=== PATIENT | female | born 1950 | race Caucasian/White ===

== ENCOUNTER → 2017-01-08 | Outpatient (CLI) | payer OTHER ==
[~2017-01-08] MED LIST: LATA0.009 OPB; LEVO50TA6 PO; MULT-506 PO; POLYSOL OPB; VITAMIN C PO
--- NOTE | 2017-01-09 07:45 | MAMMOGRAPHY REPORT ---
BILATERAL DIGITAL SCREENING MAMMOGRAM WITH CAD: 01/08/2017 CLINICAL HISTORY: Routine screening. Patient has no complaints. TECHNIQUE: Bilateral CC and MLO views were obtained. Current study was also evaluated with a Compute r Aided Detection (CAD) system. COMPARISON: Comparison is made to exam dated: 01/05/2016 mammogram - [facility]. BREAST COMPOSITION: There are scattered areas of fibroglandular density in both breasts. FINDINGS: The parenchymal pattern is unchanged. No developing mass, architectural distortion or clus ter of suspicious microcalcifications is seen in either breast. IMPRESSION: ACR BI-RADS CATEGORY 2: BENIGN There is no mammographic evidence of malignancy. A 1 year screening mammogram is recommended. The pa tient will receive written notification of the results. Approximately 10% of breast cancers are not detected with mammography. A negative mammographic report should not delay biopsy if a clinically suggestive mass is present. Franny Andres M.D. ay/:01/08/2017 15:21:19 Parking Meter Attendant: Carolina Allen RT(R)(M), [facility] letter sent: Normal 1/2 BI-RADS Code: ACR BI-RADS Category 2: Benign
== END | disposition home or self-care (01) ==
LOC: C.MAMM 11:27
PROVIDERS: ATTEND Nurse Practitioner Family
DX: Z12.31 Encounter for screening mammogram for malignant neoplasm of breast (principal)

== ENCOUNTER → 2017-12-20 | Outpatient (CLI) | payer OTHER ==
--- NOTE | 2017-12-20 10:10 | DIAGNOSTIC IMAGING REPORT ---
SOFT TISS HEAD/NECK-THYROID CLINICAL HISTORY: 67 years-old Female presenting with ENLARGED LYMPH NODE,LEFT SIDE. TECHNIQUE: Real-time grayscale and color Doppler ultrasound imaging of the neck was performed. COMPARISON: None. FINDINGS: At the site of clinical concern in the left submandibular region, few small lymph nodes are noted, one more medial measuring 1.0 x 0.7 x 0.9 cm and the more lateral node measuring 1.3 x 0.8 x 1.1 cm. These maintain normal fatty justine and a normal reniform shape. Several additional smaller lymph nodes are evident. These are all benign appearing. IMPRESSION: Multiple benign-appearing lymph nodes at the site of clinical concern in the left submandibular region. Electronically signed by: Hussain Cornelius M.D. 12/20/2017 10:08 AM Dictated Date/Time: 12/20/2017 10:06 AM
== END | disposition home or self-care (01) ==
LOC: C.ULTR 09:37
PROVIDERS: ATTEND Nurse Practitioner Family
DX: R59.1 Generalized enlarged lymph nodes (principal)

== ENCOUNTER → 2018-01-27 | Outpatient (CLI) | payer OTHER ==
--- NOTE | 2018-01-27 10:31 | DIAGNOSTIC IMAGING REPORT ---
L HIP UNILATERAL 2 VIEWS CLINICAL HISTORY: LEFT HIP PAIN COMPARISON STUDY: None. FINDINGS: No fracture or dislocation within the left hip. The visualized pelvic bones are intact. Soft tissues are unremarkable. IMPRESSION: Unremarkable left hip. Electronically signed by: Zhao Ribera M.D. 01/27/2018 10:30 AM Dictated Date/Time: 01/27/2018 10:28 AM
== END | disposition home or self-care (01) ==
LOC: C.RADBC 09:02
PROVIDERS: ATTEND Nurse Practitioner Family
DX: M25.552 Pain in left hip (principal)